=== PATIENT | male | born 1955 | race Caucasian/White ===

== ENCOUNTER 2021-02-21 09:42 | Emergency (ER) | payer MEDICARE ==
[~2021-02-21] VITALS: Ht 177.8 cm; Wt 104.3 kg
[2021-02-21] MEDS ORDERED: COZAAR 50 MG TA50 M1 PO (09:56)
[2021-02-21] MEDS ORDERED: DESYREL150 MG PO (09:56)
[2021-02-21] MEDS ORDERED: PROTONIX40 M2 PO (09:56)
[2021-02-21] MEDS ORDERED: TIZANIDINE HCL4 M1 PO (09:57)
[2021-02-21] MEDS ORDERED: EZALLOR SPRINKL20 MG PO (09:57)
[2021-02-21] MEDS ORDERED: DRIZALMA SPRINK60 MG PO (09:57)
[2021-02-21] MEDS ORDERED: DIAZEPAM 10 MG10 M1 PO (09:58)
[2021-02-21] MEDS ORDERED: TRAMADOL 50 MG50 MG PO (09:58)
[2021-02-21 10:11] LABS: URINE BILIRUBIN NEGATIVE (Negative); URINE BLOOD 3+ (Negative); URINE CLARITY SL CLOUDY; URINE COLOR YELLOW; URINE GLUCOSE-RANDOM NEGATIVE (Negative); URINE KETONES NEGATIVE (Negative); URINE LEUKOCYTES-REFLEX NEGATIVE (Negative); URINE NITRITE-REFLEX NEGATIVE (Negative); URINE PROTEIN TRACE (Negative)
[2021-02-21 10:17] LABS: HEMATOCRIT 45.7 % (42.0-52.0); HEMOGLOBIN 14.9 gm/dL (14.0-18.0); MCHC 32.5 g/dL (28.0-37.0); MCV 83.1 fL (80.0-100.0); MPV 7.5 fl. (7.2-11.1); NUCLEATED RBCS 0 /100WBC; PLATELET COUNT* 172 thou/uL (150-400); RDW-CV 13.3 % (10.5-14.5); WBC 13.9 thou/uL (4.0-11.0)
[2021-02-21 10:19] LABS: MUCUS 0-3 Light strn/LPF (None Seen); SQUAMOUS 0-3 Few /LPF (0-3); URINE RBC >20 Many /HPF (0-2)
[2021-02-21 10:20] LABS: BACTERIA-REFLEX None Seen /HPF (None Seen); CASTS None Seen /LPF (None Seen); CRYSTALS None Seen /LPF (None Seen); URINE WBC-REFLEX 0-5 Rare /HPF (0-5)
[2021-02-21 10:25] LABS: CALCIUM 8.7 mg/dL (8.5-10.1); CREATININE 1.1 mg/dL (0.6-1.3); POTASSIUM 4.3 mmol/L (3.5-5.1)
[2021-02-21 10:29] LABS: ALBUMIN 4.1 g/dL (3.4-5.0); TOTAL BILIRUBIN 1.7 mg/dL (<0.1-1.0); TOTAL PROTEIN 8.2 g/dL (6.4-8.2)
[2021-02-21 10:50] LABS: ABSOLUTE EOSINOPHILS 0.1 thou/uL (0.0-0.7); ABSOLUTE LYMPHOCYTES 1.4 thou/uL (0.8-5.3); ABSOLUTE MONOCYTES 0.8 thou/uL (0.0-1.2); ABSOLUTE NEUTROPHILS 11.5 thou/uL (1.6-8.1); PLATELET ESTIMATE ADEQUATE
[2021-02-21] MEDS ORDERED: HYDROCODON-ACE1 EAC7 PO (11:10)
[2021-02-21] MEDS ORDERED: CIPRO500 M1 PO (11:10)
[2021-02-21] MEDS ORDERED: FLOMAX0.4 MG PO (11:10)
[2021-02-21 11:26] VITALS: BP 128/70
== END 2021-02-21 11:27 | disposition home or self-care (01) ==
LOC: M.ERS 09:42
PROVIDERS: Family Medicine
DX: N20.0 Calculus of kidney (principal); Z87.442 Personal history of urinary calculi; Z88.8 Allergy status to other drugs, medicaments and biological substances